=== PATIENT | female | born 1945 | race Caucasian/White ===

== ENCOUNTER 2019-01-16 10:50 | Day surgery (SDC) | payer MEDICARE, OTHER ==
[~2019-01-16] VITALS: Ht 157.6 cm; Wt 51.5 kg
[2019-01-16] VITALS (13 sets, daily range): BP systolic 154–195; BP diastolic 90–101; PULSE 78–93
[2019-01-16 11:38] LABS: HEMATOCRIT 39.2 % (37.0-47.0); HEMOGLOBIN 12.7 g/dl (12.5-16.0); MEAN CELL VOLUME 92 fl (80.0-100.0); MEAN CORPUSCULAR HEMOGLOBIN 30 pg (27.0-31.0); MEAN CORPUSCULAR HGB CONC 32 g/dl (33.0-37.0); MEAN PLATELET VOLUME 9.7 fl (7.4-10.4); PLATELET COUNT 260 K/mm3 (130-400); RED BLOOD COUNT 4.26 M/mm3 (4.10-5.30); REDCELL DISTRIBUTION WIDTH-CV 14.1 % (11.5-14.5)
[2019-01-16 11:41] LABS: PROTHROMBIN TIME 11.7 SECONDS (9.7-12.8)
[2019-01-16 11:43] LABS: PARTIAL THROMBOPLASTIN TIME 29.9 SECONDS (26.0-37.0)
[2019-01-16 11:44] LABS: CALCIUM 9.1 mg/dL (8.4-10.2); CREATININE, serum 0.56 (0.52-1.25); POTASSIUM 4.2 mmol/L (3.4-5.0)
[2019-01-16] MEDS ORDERED: SYNTHROID0.125 MG/T PO (12:22)
[2019-01-16] MEDS ORDERED: LIPITOR20 MG PO (12:23)
[2019-01-16] MEDS ORDERED: NEURONTIN100 MG/CAP PO (12:23)
[2019-01-16] MEDS ORDERED: PROBIOTIC FORMU1 CAP PO (12:24)
[2019-01-16] MEDS ORDERED: ARAVA10 MG PO (12:24)
[2019-01-16] MEDS ORDERED: COLACE 100100 MG/CAP PO (12:25)
[2019-01-16] MEDS ORDERED: CHROMIUM PICOLI1 TA8 PO (12:25)
[2019-01-16] MEDS ORDERED: VITAMIN D 1001000 IU PO (12:25)
[2019-01-16] MEDS ORDERED: [UNRECOGNIZED DRUG - OTHER] PO (12:27)
[2019-01-16] MEDS ORDERED: ALKA-SELTZER GO1 TE1 PO (12:28)
--- NOTE | 2019-01-16 12:37 | NUR ---
2ML OF AIR REMOVED FROM RADIAL COMPRESSION BAND,BLEEDING OBSERVED AT SITE,2 ML OF AIR REINSTILLED INTO BAND.
--- NOTE | 2019-01-16 13:11 | NUR ---
Pt to procedure.
--- NOTE | 2019-01-16 13:48 | NUR ---
SEE MERGE FOR MEDICATION ADMINISTRATION TIMES AND INTRA AND POST SEDATION ASSESSEMENT.
--- NOTE | 2019-01-16 14:23 | NUR ---
Report from DINESH Almazan.Will await pts arrival.
--- NOTE | 2019-01-16 18:15 | NUR ---
Dressing at right neck clean,dry,intact and soft.Dressing to right wrist observed clean,dry,intat and soft to touch.Discharge instructions given to pt.pt verbalizes understanding.INT removed,catheter tip intact.Pt escorted out via wheelchair by this nurse.
== END 2019-01-16 18:33 | disposition hospice, home (50) ==
LOC: COL.CAR 10:50
PROVIDERS: Internal Medicine Cardiovascular Disease
DX: R94.39 Abnormal result of other cardiovascular function study (principal); R06.00 Dyspnea, unspecified; I27.20 Pulmonary hypertension, unspecified; E78.5 Hyperlipidemia, unspecified; E03.9 Hypothyroidism, unspecified; M35.00 Sjogren syndrome, unspecified; R09.89 Other specified symptoms and signs involving the circulatory and respiratory systems; Z79.899 Other long term (current) drug therapy; I10 Essential (primary) hypertension; Z79.82 Long term (current) use of aspirin; Z88.2 Allergy status to sulfonamides
CPT/HCPCS: J1644; J2250; J3010

== ENCOUNTER → 2020-08-12 | Outpatient (CLI) | payer MEDICARE, OTHER ==
[~2020-08-12] MED LIST: ALKA-SELTZER GO1 TE1 PO; ARAVA10 MG PO; CHROMIUM PICOLI1 TA8 PO; COLACE 100100 MG/CAP PO; LIPITOR20 MG PO; NEURONTIN100 MG/CAP PO; PROBIOTIC FORMU1 CAP PO; SYNTHROID0.125 MG/T PO; VITAMIN D 1001000 IU PO; [UNRECOGNIZED DRUG - OTHER] PO
== END ==
LOC: COL.PUL 06:28
DX: I27.20 Pulmonary hypertension, unspecified (principal)

== ENCOUNTER → 2020-08-28 | Outpatient (CLI) | payer MEDICARE, OTHER | LOC: COL.VAS 13:38 | DX: Q79.60 Ehlers-Danlos syndrome, unspecified (principal); I08.2 Rheumatic disorders of both aortic and tricuspid valves; I37.1 Nonrheumatic pulmonary valve insufficiency ==